=== PATIENT | male | born 1950 | race Caucasian/White ===

== ENCOUNTER 2018-09-20 03:17 | Emergency (ER) | payer OTHER, MEDICARE ==
--- NOTE | 2018-09-20 04:29 | EDPHY ---
H & P Stated Complaint: "Fever", headache, generalized discomfort. Time Seen by Provider: 09/20/18 03:50 HPI/ROS: Chief Complaint: Fever, cough, headache HPI: 68-year-old healthy male presenting with less than 24 hr of dry cough, mild headache, subjective fevers at home. Some congestion runny nose. He was been exposed to influenza is concerned that he may have contracted it. No nausea or vomiting. No chest pain or shortness of breath. No abdominal pain. No past medical history. Takes no medications. No allergies to medications. He is requesting a flu test. ROS: 10 systems were reviewed and were negative except those elements noted in the HPI. PMH: Denies Social History: No smoking, occasional alcohol, no recreational drug use Family History: non-contributory Physical Exam: Gen: Awake, Alert, No Distress HEENT: Nose: no rhinorrhea Eyes: PERRLA, EOMI Mouth: Moist mucosa Neck: Supple, no JVD Chest: nontender, lungs clear to auscultation Heart: S1, S2 normal, no murmur Abd: Soft, non-tender, no guarding Back: no CVA tenderness, no midline tenderness Ext: no edema, non-tender Skin: no rash Neuro: CN II-XII intact, Sensation grossly intact, Strength 5/5 in bilateral upper and lower extremities - Personal History Current Tetanus Diphtheria and Acellular Pertussis (TDAP): No - Medical/Surgical History Hx Asthma: No Hx Chronic Respiratory Disease: No Hx Diabetes: No Hx Cardiac Disease: No Hx Renal Disease: Yes Hx Cirrhosis: No Hx Alcoholism: No Hx HIV/AIDS: No Hx Splenectomy or Spleen Trauma: No Other PMH: Prostate CA, prostatectomy, hernia repair, partial nephrectomy-tumor. - Social History Smoking Status: Never smoked Constitutional: Initial Vital Signs Temperature (C) 37.1 C 09/20/18 03:26 Heart Rate 75 09/20/18 03:26 Respiratory Rate 17 09/20/18 03:26 Blood Pressure 99/59 L 09/20/18 03:26 O2 Sat (%) 94 09/20/18 03:26 O2 Delivery Mode Room Air Allergies/Adverse Reactions: No Known Allergies Allergy (Verified 09/20/18 03:25) Home Medications: Medication Instructions Recorded Cialis Unk 08/18/13 Aspirin 01/08/16 Levitra 01/08/16 Medical Decision Making ED Course/Re-evaluation: Patient is negative for influenza a and B. Symptoms consistent with viral upper respiratory infection. Will discharge with supportive care, follow up with primary care physician. - Data Points Laboratory Results: 09/20/18 04:00 Nasal Influenza A PCR NEGATIVE FOR FLU A (NEGATIVE) Nasal Influenza B PCR NEGATIVE FOR FLU B (NEGATIVE) Departure - Departure Disposition: Home, Routine, Self-Care Clinical Impression: Viral URI Condition: Good Instructions: Upper Respiratory Infection (ED) Additional Instructions: Alternate acetaminophen (1000 mg) with ibuprofen (400 mg) every 4 hours as needed for fevers, chills, aches or pain. Follow up with primary care physician in 3-4 days if symptoms are not improving. Referrals: Erlin Tillman MD [Primary Care Provider] - As per Instructions
[2018-09-20 05:19] VITALS: BP 102/70
== END 2018-09-20 05:18 | disposition home or self-care (01) ==
DX: B34.9 Viral infection, unspecified (principal)